=== PATIENT | male | born 1965 | race Caucasian/White ===

== ENCOUNTER → 2018-05-14 13:20 | Outpatient (CLI) | payer OTHER, SELFPAY ==
--- NOTE | 2018-05-14 | DI.MRI.S_ITS ---
PROCEDURE: MRFOOT LT WO CON INDICATIONS: Pain in left foot TECHNIQUE: Noncontrast sagittal T1 spin echo and T2 fast spin echo with fat saturation, long-axis T1 spin echo and T2 fast spin echo with fat saturation, short-axis T1 spin echo and T2 fast spin echo with fat saturation through the forefoot. COMPARISON: None. FINDINGS: Image quality: Excellent. Bones and joints: No bone marrow contusions or metatarsal stress fractures. Subchondral marrow signal changes at the fifth MTP joint, possibly cysts versus erosions. This could be further assessed with contrast-enhanced study is clinically warranted. The sesamoid bones appear in expected positions, without internal edema. No intraosseous lesions. Soft tissues: The visualized plantar foot muscles demonstrate normal signal and bulk. Visualized flexor and extensor tendons appear intact, without tenosynovitis. The distal insertions of the peroneus brevis and longus tendons appear intact. The principal Lisfranc ligament appears intact. Periarticular soft tissue edema and effusion is present at the second MTP joint. There is presumably reactive marrow edema. No definite loss of marrow fat signal on the T1-weighted sequence. Additional focal fluid collection seen in the plantar soft tissues just distal and medial to the second metatarsal head measuring 10 x 7 mm on short axis image 15 series 9. Sagittal images demonstrate no evidence for plantar plate tears. IMPRESSION: Periarticular soft tissue edema and effusion at the second metatarsophalangeal joint of unknown etiology. This could be related to trauma, infection, severe joint degeneration or erosive arthropathy (although no discrete erosions are currently identified). Additional subchondral signal changes at the fifth MTP joint raise the possibility of erosions, although differential includes degenerative cysts. Further evaluation with contrast-enhanced MRI could be performed as clinically warranted. Please correlate clinically and with laboratory data. Also, recommend correlation with dedicated foot radiographs. Dictated by: Scott Batres M.D. on 05/14/2018 at 14:14 Approved by: Scott Batres M.D. on 05/14/2018 at 14:30
== END ==
PROVIDERS: Visit Provider Podiatrist
DX: M79.672 Pain in left foot (principal); M77.42 Metatarsalgia, left foot; R26.2 Difficulty in walking, not elsewhere classified; M25.475 Effusion, left foot
CPT/HCPCS: 73718